=== PATIENT | female | born 1985 | race Caucasian/White ===

== ENCOUNTER → 2017-05-13 | Outpatient (CLI) | payer BC ==
--- NOTE | 2017-05-13 15:23 | RADIOLOGY REPORT (SQ) ---
EXAM DESCRIPTION: KNEE RIGHT 3 VIEWS; EMPLOYEE COMPLETED DATE/TIME: 05/13/2017 3:14 pm REASON FOR STUDY: PAIN IN RIGHT KNEE E07.9 DISORDER OF THYROID, UNSPECIFIED M25.561 PAIN IN RIGHT KNEE M79.674 PAIN IN RIGHT TOE(S) COMPARISON: None. NUMBER OF VIEWS: Three views. TECHNIQUE: AP, lateral, and sunrise patella radiographic images acquired of the right knee. LIMITATIONS: None. FINDINGS: MINERALIZATION: Normal. BONES: No acute fracture or dislocation. No worrisome bone lesions. No significant osteophytes. JOINT: No effusion. No chondrocalcinosis. OTHER: No other significant finding. IMPRESSION: NEGATIVE STUDY OF THE RIGHT KNEE. NO EXPLANATION FOR PAIN. TECHNICAL DOCUMENTATION: JOB ID: [id number] [employer]- All Rights Reserved
--- NOTE | 2017-05-13 15:23 | RADIOLOGY REPORT (SQ) ---
EXAM DESCRIPTION: KNEE RIGHT 3 VIEWS; EMPLOYEE COMPLETED DATE/TIME: 05/13/2017 3:14 pm REASON FOR STUDY: PAIN IN RIGHT KNEE E07.9 DISORDER OF THYROID, UNSPECIFIED M25.561 PAIN IN RIGHT KNEE M79.674 PAIN IN RIGHT TOE(S) COMPARISON: None. NUMBER OF VIEWS: Three views. TECHNIQUE: AP, lateral, and sunrise patella radiographic images acquired of the right knee. LIMITATIONS: None. FINDINGS: MINERALIZATION: Normal. BONES: No acute fracture or dislocation. No worrisome bone lesions. No significant osteophytes. JOINT: No effusion. No chondrocalcinosis. OTHER: No other significant finding. IMPRESSION: NEGATIVE STUDY OF THE RIGHT KNEE. NO EXPLANATION FOR PAIN. TECHNICAL DOCUMENTATION: JOB ID: [id number] [facility]- All Rights Reserved
--- NOTE | 2017-05-13 15:24 | RADIOLOGY REPORT (SQ) ---
EXAM DESCRIPTION: FOOT RIGHT 2 VIEWS; EMPLOYEE COMPLETED DATE/TIME: 05/13/2017 3:14 pm REASON FOR STUDY: PAIN IN RIGHT FOOT; PAIN IN RIGHT TOE(S) E07.9 DISORDER OF THYROID, UNSPECIFIED M 25.561 PAIN IN RIGHT KNEE M79.674 PAIN IN RIGHT TOE(S) COMPARISON: None. NUMBER OF VIEWS: Three views. TECHNIQUE: AP, lateral and oblique without weight bearing radiographic images acquired of the right foot. LIMITATIONS: None. FINDINGS: MINERALIZATION: Normal. BONES: No acute fracture or dislocation. No worrisome bone lesions. No significant osteophytes. JOINTS: No erosions. No eta-articular osteopenia. No chondrocalcinosis. SOFT TISSUES: No swelling. No calcifications. OTHER: No other significant finding. IMPRESSION: NEGATIVE STUDY OF THE RIGHT FOOT. NO EXPLANATION FOR PAIN. TECHNICAL DOCUMENTATION: JOB ID: [id number] [employer]- All Rights Reserved
--- NOTE | 2017-05-13 15:24 | RADIOLOGY REPORT (SQ) ---
EXAM DESCRIPTION: FOOT RIGHT 2 VIEWS; EMPLOYEE COMPLETED DATE/TIME: 05/13/2017 3:14 pm REASON FOR STUDY: PAIN IN RIGHT FOOT; PAIN IN RIGHT TOE(S) E07.9 DISORDER OF THYROID, UNSPECIFIED M 25.561 PAIN IN RIGHT KNEE M79.674 PAIN IN RIGHT TOE(S) COMPARISON: None. NUMBER OF VIEWS: Three views. TECHNIQUE: AP, lateral and oblique without weight bearing radiographic images acquired of the right foot. LIMITATIONS: None. FINDINGS: MINERALIZATION: Normal. BONES: No acute fracture or dislocation. No worrisome bone lesions. No significant osteophytes. JOINTS: No erosions. No tea-articular osteopenia. No chondrocalcinosis. SOFT TISSUES: No swelling. No calcifications. OTHER: No other significant finding. IMPRESSION: NEGATIVE STUDY OF THE RIGHT FOOT. NO EXPLANATION FOR PAIN. TECHNICAL DOCUMENTATION: JOB ID: [id number] [employer]- All Rights Reserved
== END ==
LOC: OD 14:34
PROVIDERS: ATTEND Family Medicine
DX: E07.9 Disorder of thyroid, unspecified (principal); M25.561 Pain in right knee; M79.674 Pain in right toe(s)
CPT/HCPCS: 36415; 84443

== ENCOUNTER → 2017-07-25 | Outpatient (CLI) | payer BC ==
--- NOTE | 2017-07-26 14:26 | RADIOLOGY REPORT (SQ) ---
EXAM DESCRIPTION: MRI RT LOWER JOINT WITHOUT COMPLETED DATE/TIME: 07/25/2017 5:46 pm REASON FOR STUDY: PAIN IN RIGHT KNEE M25.561 PAIN IN RIGHT KNEE COMPARISON: None. TECHNIQUE: Rightknee images acquired and stored on PACS. Multiplanar images include fat sensitive s equences as T1, water sensitive sequences as FST2 or STIR, cartilage sensitive sequences as FSPD, and gradient echo sequences. LIMITATIONS: Patient motion. FINDINGS: JOINT AND BURSAE: No effusion. BONE CORTEX AND MARROW: No alteration of signal to suggest marrow replacement. No worrisome bone lesi ons. No occult fracture. ACL: Intact. No degeneration or ganglion cyst. PCL: Intact. MCL: Intact. No periligamentous edema or fluid. LCL: Intact. No periligamentous edema or fluid. MEDIAL MENISCUS: There is increase signal in the posterior horn which extends to the articular surfac e in the horizontal plane near the root. LATERAL MENISCUS: No tears. No abnormal signal. MEDIAL COMPARTMENT: Cartilage preserved. No bone bruises or reactive marrow edema. No osteophytes. LATERAL COMPARTMENT: Cartilage preserved. No bone bruises or reactive marrow edema. No osteophytes. PATELLA: Lateral tilt. No chondromalacia. No subchondral cysts. Medial and lateral retinacula intact . EXTENSOR MECHANISM: Intact. Quadriceps and patella tendons normal. SOFT TISSUES: Adjacent muscles and subcutaneous tissues normal. Normal flow void in popliteal artery and vein. OTHER: No other significant finding. IMPRESSION: Horizontal tear medial meniscus near the posterior root. TECHNICAL DOCUMENTATION: JOB ID: [id number] [employer]- All Rights Reserved Reading location - IP/workstation name: [email or web address]
== END ==
LOC: RAD 16:44
PROVIDERS: ATTEND Orthopaedic Surgery
DX: M25.561 Pain in right knee (principal); S83.241A Other tear of medial meniscus, current injury, right knee, initial encounter; X58.XXXA Exposure to other specified factors, initial encounter

== ENCOUNTER → 2017-08-20 | Outpatient (CLI) | payer BC ==
[2017-08-20 10:46] LABS: ABSOLUTE BASOPHILS # (AUTO) 0.1 10^3/uL (0.0-0.2); ABSOLUTE EOSINOPHILS # (AUTO) 0.1 10^3/uL (0.0-0.6); ABSOLUTE LYMPHOCYTES (AUTO) 1.9 10^3/uL (0.5-4.7); ABSOLUTE MONOCYTES (AUTO) 0.3 10^3/uL (0.1-1.4); ABSOLUTE NEUT (AUTO) 3.1 10^3/uL (1.7-8.2); EOSINOPHILS % (AUTO) 2.2 % (0-6); HEMATOCRIT 41.1 % (36.0-47.0); HEMOGLOBIN 13.8 g/dL (12.0-15.5); LYMPHOCYTES % (AUTO) 34.2 % (13-45); MEAN CORPUSCULAR HEMOGLOBIN 30.4 pg (27.0-33.4); MEAN CORPUSCULAR HGB CONC 33.5 g/dL (32.0-36.0); MEAN CORPUSCULAR VOLUME 91 fl (80-97); MONOCYTES % (AUTO) 6.1 % (3-13); PLATELET COUNT 196 10^3/uL (150-450); RED BLOOD COUNT 4.54 10^6/uL (3.72-5.28); RED CELL DISTRIBUTION WIDTH 14.1 % (11.5-14.0); SEGMENTED NEUTROPHILS % (AUTO) 56.5 % (42-78); TOTAL CELLS COUNTED % (AUTO) 100 %; WHITE BLOOD COUNT 5.5 10^3/uL (4.0-10.5)
[2017-08-20 11:16] LABS: ALANINE AMINOTRANSFERASE 48 U/L (9-52); ALBUMIN 4.2 g/dL (3.5-5.0); ALKALINE PHOSPHATASE 74 U/L (38-126); ANION GAP 11 (5-19); ASPARTATE AMINO TRANSFERASE 26 U/L (14-36); BILIRUBIN,DIRECT 0.1 mg/dL (0.0-0.4); BILIRUBIN,TOTAL 0.1 mg/dL (0.2-1.3); BLOOD UREA NITROGEN 16 mg/dL (7-20); CALCIUM 9.3 mg/dL (8.4-10.2); CARBON DIOXIDE 30 mmol/L (22-30); CHLORIDE 104 mmol/L (98-107); GLUCOSE 96 mg/dL (75-110); POTASSIUM 4.7 mmol/L (3.6-5.0); SODIUM 145.2 mmol/L (137-145); TOTAL PROTEIN 7.2 g/dL (6.3-8.2)
[2017-08-24 03:36] LABS: CHLAMYDIA PREQUOT NAA Negative (Negative)
[2017-08-24 06:21] LABS: GONOCOCCUS PREQUOT (CYTO) NAA Negative (Negative)
== END ==
LOC: OD 10:01
PROVIDERS: ATTEND Midwife
DX: Z00.00 Encounter for general adult medical examination without abnormal findings (principal); Z13.6 Encounter for screening for cardiovascular disorders; Z13.29 Encounter for screening for other suspected endocrine disorder; Z13.220 Encounter for screening for lipoid disorders; Z13.0 Encounter for screening for diseases of the blood and blood-forming organs and certain disorders involving the immune mechanism; Z11.51 Encounter for screening for human papillomavirus (HPV); Z11.3 Encounter for screening for infections with a predominantly sexual mode of transmission; Z12.4 Encounter for screening for malignant neoplasm of cervix
CPT/HCPCS: 36415; 80053; 84443; 85025; 87491; 87591; 87624; 88142

== ENCOUNTER 2017-08-26 00:16 | Emergency (ER) | payer BC ==
[2017-08-26] MEDS ORDERED: MAG HYDROX/AL HYDROX/SIMETH SUSP 30 ML UDCUP PO ONE (01:17)
[2017-08-26] MEDS ORDERED: LIDOCAINE 2% VISCOUS SOLN 20 ML UDCUP PO ONE (01:17)
--- NOTE | 2017-08-26 01:22 | ER Document Report ---
ED Medical Screen (RME) - General Chief Complaint: Abdominal Pain Stated Complaint: ABDOMINAL PAIN Time Seen by Provider: 08/26/17 01:17 Mode of Arrival: Ambulatory Information source: Patient Notes: Patient presents complaining of upper abdominal pain that started yesterday evening. Patient complains of frequent belching and feeling bloated. Patient denies any nausea or vomiting. Patient denies any cough or cold symptoms. Patient denies any chest pain or urinary symptoms. I have greeted and performed a rapid initial assessment of this patient. A comprehensive ED assessment and evaluation of the patient, analysis of test results and completion of the medical decision making process will be conducted by additional ED providers. TRAVEL OUTSIDE OF THE [place] IN LAST 30 DAYS: No - Related Data Allergies/Adverse Reactions: No Known Allergies Allergy (Unverified 09/29/13 01:12) Past Medical History - Social History Frequency of alcohol use: None Drug Abuse: None Renal/ Medical History: Denies: Hx Peritoneal Dialysis Musculoskeltal Medical History: Reports Hx Musculoskeletal Trauma Past Surgical History: Reports: Hx Orthopedic Surgery - L knee Physical Exam - Vital signs Vitals: Temp Pulse Resp BP Pulse Ox 97.9 F 75 18 135/86 H 98 08/26/17 00:21 08/26/17 00:21 08/26/17 00:21 08/26/17 00:21 08/26/17 00:21 - Abdominal Tenderness: Tender - Upper abdominal tenderness Course - Vital Signs Vital signs: Temp Pulse Resp BP Pulse Ox 97.9 F 75 18 135/86 H 98 08/26/17 00:21 08/26/17 00:21 08/26/17 00:21 08/26/17 00:21 08/26/17 00:21
[2017-08-26 02:03] LABS: ABSOLUTE LYMPHOCYTES (AUTO) 1.8 10^3/uL (0.5-4.7); ABSOLUTE MONOCYTES (AUTO) 0.6 10^3/uL (0.1-1.4); ABSOLUTE NEUT (AUTO) 7.4 10^3/uL (1.7-8.2); BASOPHILS % (AUTO) 0.4 % (0-2); EOSINOPHILS % (AUTO) 0.4 % (0-6); HEMATOCRIT 43.2 % (36.0-47.0); HEMOGLOBIN 14.2 g/dL (12.0-15.5); LYMPHOCYTES % (AUTO) 18.1 % (13-45); MEAN CORPUSCULAR HEMOGLOBIN 30.1 pg (27.0-33.4); MEAN CORPUSCULAR VOLUME 91 fl (80-97); MONOCYTES % (AUTO) 5.9 % (3-13); PLATELET COUNT 258 10^3/uL (150-450); RED BLOOD COUNT 4.74 10^6/uL (3.72-5.28); RED CELL DISTRIBUTION WIDTH 14.8 % (11.5-14.0); SEGMENTED NEUTROPHILS % (AUTO) 75.2 % (42-78); TOTAL CELLS COUNTED % (AUTO) 100 %; WHITE BLOOD COUNT 9.8 10^3/uL (4.0-10.5)
[2017-08-26 02:29] LABS: ALANINE AMINOTRANSFERASE 51 U/L (9-52); ALBUMIN 4.6 g/dL (3.5-5.0); ALKALINE PHOSPHATASE 78 U/L (38-126); ANION GAP 15 (5-19); ASPARTATE AMINO TRANSFERASE 25 U/L (14-36); BILIRUBIN,DIRECT 0.3 mg/dL (0.0-0.4); BILIRUBIN,TOTAL 0.3 mg/dL (0.2-1.3); BLOOD UREA NITROGEN 11 mg/dL (7-20); CALCIUM 9.6 mg/dL (8.4-10.2); CARBON DIOXIDE 24 mmol/L (22-30); CHLORIDE 106 mmol/L (98-107); GLUCOSE 122 mg/dL (75-110); LIPASE 45.3 U/L (23-300); POTASSIUM 4.2 mmol/L (3.6-5.0); SODIUM 144.7 mmol/L (137-145); TOTAL PROTEIN 7.9 g/dL (6.3-8.2)
[2017-08-26 02:38] LABS: APPEARANCE,URINE SLIGHTLY-CLOUDY; BILIRUBIN,URINE NEGATIVE (NEGATIVE); COLOR,URINE YELLOW; GLUCOSE, URINE NEGATIVE (NEGATIVE); KETONES,URINE TRACE mg/dL (NEGATIVE); LEUKOCYTE ESTERASE,URINE NEGATIVE (NEGATIVE); NITRITE,URINE NEGATIVE (NEGATIVE); PROTEIN,URINE NEGATIVE (NEGATIVE); URINE SPECIFIC GRAVITY 1.029; UROBILINOGEN,URINE NEGATIVE mg/dL (<2.0)
[2017-08-26] MEDS ORDERED: FAMOTIDINE 20 MG TABLET PO ONE (03:37)
--- NOTE | 2017-08-26 03:38 | ER Document Report ---
ED General - General Chief Complaint: Abdominal Pain Stated Complaint: ABDOMINAL PAIN Time Seen by Provider: 08/26/17 01:17 Mode of Arrival: Ambulatory Information source: Patient Notes: 32-year-old female presents with complaints of epigastric burning sensation. Patient denies any fevers or chills admits to mild nausea. She denies any vomiting. Patient states that this does not appear to be related to food. Pain does not radiate to size but radiates to the back from the middle TRAVEL OUTSIDE OF THE [place] IN LAST 30 DAYS: No - HPI Onset: Just prior to arrival Onset/Duration: Sudden Quality of pain: Sharp Severity: Mild Pain Level: 1 Associated symptoms: Other Exacerbated by: Denies Relieved by: Denies Similar symptoms previously: No Recently seen / treated by doctor: No - Related Data Allergies/Adverse Reactions: No Known Allergies Allergy (Unverified 09/29/13 01:12) Past Medical History - General Information source: Patient - Social History Smoking Status: Never Smoker Cigarette use (# per day): No Chew tobacco use (# tins/day): No Smoking Education Provided: No Frequency of alcohol use: None Drug Abuse: None Family History: Reviewed & Not Pertinent Patient has suicidal ideation: No Patient has homicidal ideation: No Renal/ Medical History: Denies: Hx Peritoneal Dialysis Musculoskeltal Medical History: Reports Hx Musculoskeletal Trauma Past Surgical History: Reports: Hx Orthopedic Surgery - L knee Review of Systems - Review of Systems Notes: REVIEW OF SYSTEMS: CONSTITUTIONAL : Denies fever, chills, or sweats. Denies recent illness. EENT: Denies eye, ear, throat, or mouth pain or symptoms. Denies nasal or sinus congestion or discharge. Denies throat, tongue, or mouth swelling or difficulty swallowing. CARDIOVASCULAR: Denies chest pain. Denies palpitations or racing or irregular heart beat. Denies ankle edema. RESPIRATORY: Denies cough, cold, or chest congestion. Denies shortness of breath, difficulty breathing, or wheezing. GASTROINTESTINAL: Admits to epigastric abdominal pain GENITOURINARY: Denies difficulty urinating, painful urination, burning, frequency, blood in urine, or discharge. MUSCULOSKELETAL: Denies back or neck pain or stiffness. Denies joint pain or swelling. SKIN: Denies rash, lesions or sores. HEMATOLOGIC : Denies easy bruising or bleeding. LYMPHATIC: Denies swollen, enlarged glands. NEUROLOGICAL: Denies confusion or altered mental status. Denies passing out or loss of consciousness. Denies dizziness or lightheadedness. Denies headache. Denies weakness or paralysis or loss of use of either side. Denies problems with gait or speech. Denies sensory loss, numbness, or tingling. Denies seizures. PSYCHIATRIC: Denies anxiety or stress. Denies depression, suicidal ideation, or homicidal ideation. ALL OTHER SYSTEMS REVIEWED AND NEGATIVE. Dictation was performed using [employer] voice recognition software PHYSICAL EXAMINATION: GENERAL: Well-appearing, well-nourished and in no acute distress. HEAD: Atraumatic, normocephalic. EYES: Pupils equal round and reactive to light, extraocular movements intact, sclera anicteric, conjunctiva are normal. ENT: Nares patent, oropharynx clear without exudates. Moist mucous membranes. NECK: Normal range of motion, supple without lymphadenopathy LUNGS: Breath sounds clear to auscultation bilaterally and equal. No wheezes rales or rhonchi. HEART: Regular rate and rhythm without murmurs ABDOMEN: Soft, tender in epigastric region no rebound or guarding Musculoskeletal: Normal range of motion, no pitting or edema. No cyanosis. NEUROLOGICAL: Cranial nerves grossly intact. Normal speech, normal gait. Normal sensory, motor exams PSYCH: Normal mood, normal affect. SKIN: Warm, Dry, normal turgor, no rashes or lesions noted. Physical Exam - Vital signs Vitals: Temp Pulse Resp BP Pulse Ox 97.9 F 75 18 135/86 H 98 08/26/17 00:21 08/26/17 00:21 08/26/17 00:21 08/26/17 00:21 08/26/17 00:21 Course - Re-evaluation Re-evalutation: 08/26/17 05:36 Ultrasound was consistent with small stones but her pain is not in the right upper quadrant is consistent epigastric region, it was attempted to give her GI cocktail but she vomited that up, this is only time she has actually vomited. She has been nauseous, patient overall looks well is in no distress lab work noted no elevation of white count, she does not appear to be in any distress at this time, I did start her on Pepcid and I do believe it is gastric reflux related. I gave her follow-up with GI specialist, we had a long discussion regarding her care, I did provide very strict return precautions After performing a Medical Screening Examination, I estimate there is LOW risk for ACUTE APPENDICITIS, BOWEL OBSTRUCTION, ACUTE CHOLECYSTITIS, PERFORATED DIVERTICULITIS, INCARCERATED HERNIA, PANCREATITIS, PELVIC INFLAMMATORY DISEASE, PERFORATED ULCER, ECTOPIC , or TUBO-OVARIAN ABSCESS, thus I consider the discharge disposition reasonable. Also, there is no evidence or peritonitis , sepsis, or toxicity. I have reevaluated this patient multiple times and no significant life threatening changes are noted. The patient and I have discussed the diagnosis and risks, and we agree with discharging home with close follow-up with the understanding that symptoms and presentations can change. We also discussed returning to the Emergency Department immediately if new or worsening symptoms occur. We have discussed the symptoms which are most concerning (e.g., bloody stool, fever, changing or worsening pain, vomiting) that necessitate immediate return. - Vital Signs Vital signs: Temp Pulse Resp BP Pulse Ox 97.9 F 50 L 16 128/83 H 100 08/26/17 00:21 08/26/17 03:56 08/26/17 03:56 08/26/17 03:56 08/26/17 03:56 - Laboratory Result Diagrams: 08/26/17 01:50 08/26/17 01:50 Laboratory results interpreted by me: 08/26/17 08/26/17 08/26/17 01:50 01:50 01:50 RDW 14.8 H Glucose 122 H Urine Ketones TRACE H Urine Blood LARGE H - Diagnostic Test Radiology reviewed: Image reviewed - Ultrasound right upper quadrant limited abdomen consistent with small floating stones, Reports reviewed Discharge - Discharge Clinical Impression: Epigastric abdominal pain GERD (gastroesophageal reflux disease) Qualifiers: Esophagitis presence: with esophagitis Qualified Code(s): K21.0 - Gastro- esophageal reflux disease with esophagitis Condition: Stable Disposition: HOME, SELF-CARE Instructions: Abdominal Pain ([facility]) Prescriptions: Famotidine [Pepcid 40 mg Tablet] 40 mg PO DAILY #30 tablet Metoclopramide HCl [Reglan 10 mg Tablet] 1 - 2 tab PO Q6 #25 tablet Forms: Return to Work Referrals: BREN VEE MD [Primary Care Provider] - Follow up as needed EDIS GOODSON MD [ACTIVE STAFF] - Follow up tomorrow
[2017-08-26 03:56] VITALS: BP 128/83
--- NOTE | 2017-08-26 04:28 | RADIOLOGY REPORT (SQ) ---
EXAM DESCRIPTION: U/S ABDOMEN LIMITED W/O DOP COMPLETED DATE/TIME: 08/26/2017 3:13 am REASON FOR STUDY: upper abd pain COMPARISON: None. TECHNIQUE: Dynamic and static grayscale images acquired of the abdomen and recorded on PACS. Additio nal selected color Doppler and spectral images recorded. LIMITATIONS: None. FINDINGS: PANCREAS: No masses. Visualized pancreatic duct normal caliber. LIVER: Fatty infiltration. No focal masses. LIVER VASCULATURE: Normal directional flow of the main portal vein and hepatic veins. GALLBLADDER: Echogenic foci without shadowing. Probably small stones. Possibly polyp. ULTRASOUND-DETECTED DISLA'S SIGN: Negative. INTRAHEPATIC DUCTS AND COMMON DUCT: CBD and intrahepatic ducts normal caliber. No filling defects. INFERIOR VENA CAVA: Normal flow. AORTA: No aneurysm. RIGHT KIDNEY: Normal size. Normal echogenicity. No solid or suspicious masses. No hydronephrosis. No calcifications. PERITONEAL AND RIGHT PLEURAL SPACE: No ascites or effusions. OTHER: No other significant findings. IMPRESSION: Likely small floating stones in the gallbladder. Possible polyp is well. Fatty liver. TECHNICAL DOCUMENTATION: JOB ID: [id number] [employer]- All Rights Reserved Reading location - IP/workstation name: [email or web address]
== END 2017-08-26 03:57 | disposition home or self-care (01) ==
LOC: ER 00:16
DX: R10.13 Epigastric pain (principal); K21.0 Gastro-esophageal reflux disease with esophagitis; R11.0 Nausea
CPT/HCPCS: 99284; 36415; 83690; 84703; 85025; 80053; 81001; 76705; J3490

== ENCOUNTER → 2017-09-05 | Outpatient (CLI) | payer BC ==
[2017-09-09 07:47] LABS: HELICOBACTER PYLORI IGA AB <9.0 units (0.0-8.9); HELICOBACTER PYLORI IGG AB <0.80 (0.00-0.79); HELICOBACTER PYLORI IGM AB <9.0 units (0.0-8.9)
== END ==
LOC: OD 15:55
PROVIDERS: ATTEND Surgery
DX: K29.70 Gastritis, unspecified, without bleeding (principal); R10.9 Unspecified abdominal pain
CPT/HCPCS: 36415; 86677

== ENCOUNTER 2017-09-10 05:34 | Day surgery (SDC) | payer BC ==
--- NOTE | 2017-09-03 08:46 | EKG REPORT ---
SEVERITY:- OTHERWISE NORMAL ECG - SINUS ARRHYTHMIA, RATE 47-70 : Confirmed by: Rosa M Carmona 03-Sep-2017 08:45:53
[2017-09-03 09:16] LABS: ABSOLUTE BASOPHILS # (AUTO) 0.1 10^3/uL (0.0-0.2); ABSOLUTE EOSINOPHILS # (AUTO) 0.1 10^3/uL (0.0-0.6); ABSOLUTE MONOCYTES (AUTO) 0.5 10^3/uL (0.1-1.4); ABSOLUTE NEUT (AUTO) 4.1 10^3/uL (1.7-8.2); BASOPHILS % (AUTO) 1.2 % (0-2); EOSINOPHILS % (AUTO) 2.1 % (0-6); HEMATOCRIT 41.8 % (36.0-47.0); HEMOGLOBIN 13.9 g/dL (12.0-15.5); LYMPHOCYTES % (AUTO) 29.2 % (13-45); MEAN CORPUSCULAR HGB CONC 33.2 g/dL (32.0-36.0); MEAN CORPUSCULAR VOLUME 90 fl (80-97); MONOCYTES % (AUTO) 7.6 % (3-13); PLATELET COUNT 263 10^3/uL (150-450); RED BLOOD COUNT 4.62 10^6/uL (3.72-5.28); RED CELL DISTRIBUTION WIDTH 14.5 % (11.5-14.0); SEGMENTED NEUTROPHILS % (AUTO) 59.9 % (42-78); TOTAL CELLS COUNTED % (AUTO) 100 %; WHITE BLOOD COUNT 6.9 10^3/uL (4.0-10.5)
[2017-09-03 09:37] LABS: APPEARANCE,URINE CLEAR; BILIRUBIN,URINE NEGATIVE (NEGATIVE); COLOR,URINE YELLOW; GLUCOSE, URINE NEGATIVE (NEGATIVE); KETONES,URINE NEGATIVE (NEGATIVE); LEUKOCYTE ESTERASE,URINE NEGATIVE (NEGATIVE); NITRITE,URINE NEGATIVE (NEGATIVE); PROTEIN,URINE NEGATIVE (NEGATIVE); URINE SPECIFIC GRAVITY 1.027; UROBILINOGEN,URINE NEGATIVE mg/dL (<2.0)
--- NOTE | 2017-09-03 09:43 | RADIOLOGY REPORT (SQ) ---
EXAM DESCRIPTION: CHEST PA/LATERAL COMPLETED DATE/TIME: 09/03/2017 8:49 am REASON FOR STUDY: PRE-OP COMPARISON: None. EXAM PARAMETERS: NUMBER OF VIEWS: two views TECHNIQUE: Digital Frontal and Lateral radiographic views of the chest acquired. RADIATION DOSE: NA LIMITATIONS: none FINDINGS: LUNGS AND PLEURA: No acute infiltrates or effusions. MEDIASTINUM AND HILAR STRUCTURES: No masses or contour abnormalities. HEART AND VASCULAR STRUCTURES: The heart is normal with normal pulmonary vasculature. . BONES: No acute findings. HARDWARE: None in the chest. OTHER: No other significant finding. IMPRESSION: NO ACUTE DISEASE. TECHNICAL DOCUMENTATION: JOB ID: [id number] [employer] [facility]- All Rights Reserved Reading location - IP/workstation name: [email or web address]
[2017-09-03 09:46] LABS: ANION GAP 14 (5-19); BLOOD UREA NITROGEN 12 mg/dL (7-20); CALCIUM 9.5 mg/dL (8.4-10.2); CARBON DIOXIDE 28 mmol/L (22-30); CHLORIDE 102 mmol/L (98-107); GLUCOSE 96 mg/dL (75-110); POTASSIUM 4.5 mmol/L (3.6-5.0); SODIUM 143.8 mmol/L (137-145)
[~2017-09-10 05:34] MED LIST: CEFAZOLIN SODIUM 2 GM in DEXTROSE 5%-WATER 100 ML IV PRN; LACTATED RINGERS 1000 ML IV PRN; LIDOCAINE 0.5% INJ-PF (5 MG/ML) 50 ML SDV SUBCUT PRN
[2017-09-10] MEDS ORDERED: FENTANYL CITRATE INJ/PF 100 MCG/2 ML AMPUL ONE (06:42)
[2017-09-10] MEDS ORDERED: MIDAZOLAM 2 MG/2 ML INJ ONE (06:42)
[2017-09-10] MEDS ORDERED: PROPOFOL INJ 200 MG/20 ML VIAL IV ONE ×2 (06:42→07:01)
[2017-09-10] MEDS ORDERED: MORPHINE SULFATE 10 MG/ML INJ ONE (06:43)
[2017-09-10] MEDS ORDERED: BUPIVACAINE HCL 0.5 % INJ/PF 30 ML SDV ONE (06:45)
[2017-09-10] MEDS ORDERED: LIDOCAINE 1%/EPINEPHRINE INJ 20 ML VIAL ONE (06:45)
[2017-09-10] MEDS ORDERED: FENTANYL CITRATE INJ/PF 100 MCG/2 ML AMPUL IV PRN ×3 (07:35)
[2017-09-10] MEDS ORDERED: DIPHENHYDRAMINE HCL 50 MG/ML VIAL IV PRN (07:35)
[2017-09-10] MEDS ORDERED: MORPHINE SULFATE 10 MG/ML INJ IV PRN (07:35)
[2017-09-10] MEDS ORDERED: PROMETHAZINE HCL INJ 25 MG/1 ML VIAL IV PRN (07:35)
[2017-09-10] MEDS ORDERED: MEPERIDINE HCL/PF INJ 25 MG/1 ML DISP.SYRIN IV PRN (07:35)
--- NOTE | 2017-09-10 07:48 | Operative Report ---
Operative Report DATE OF SURGERY: 09/10/17 PREOPERATIVE DIAGNOSIS: Right medial meniscal tear POSTOPERATIVE DIAGNOSIS: Right medial meniscal tear. Grade 0-I chondromalacia the medial compartment. Intact ACL. Grade 0-1 chondral malacia lateral compartment. Lateral meniscal tear. Grade 0-1 chondral malacia the patellofemoral compartment OPERATION: Arthroscopic right partial medial and lateral meniscectomy SURGEON: CHRISTINE GARCES ANESTHESIA: LMAC PROCEDURE: With the patient supine Afrin table the right lower extremities prepped and draped in sterile fashion. The knee is insufflated with combination of Marcaine , Xylocaine, and epinephrine. Subsequently medial lateral patella portals are created for the introduction of arthroscope and debridement instrumentation. Joint is examined in systematic fashion findings as above. Using combination of mechanical shaver and electric frequency ablation probe a partial medial meniscectomy was performed from approximately 4:00 to 12:00 in the face of the dial. Partial lateral meniscectomy was performed from proximal 8:00 to 12:00 in the face of the dial. The joint again is examined in systematic fashion with no new findings. The instrumentation was removed. The portals were reapproximated with interrupted nylon. A sterile compressive dressing was applied and patient's return to the PACU in satisfactory condition.
[2017-09-10] MEDS ORDERED: ONDANSETRON 4 MG TAB.RAPDIS SL PRN (08:08)
[2017-09-10] MEDS ORDERED: OXYCODONE HCL IR 5 MG TABLET PO PRN (08:08)
[2017-09-10 09:57] VITALS: BP 109/73
== END 2017-09-10 09:50 | disposition home or self-care (01) ==
LOC: OROUT 05:34
PROVIDERS: ATTEND Orthopaedic Surgery
DX: M23.204 Derangement of unspecified medial meniscus due to old tear or injury, left knee (principal); M22.41 Chondromalacia patellae, right knee; M23.200 Derangement of unspecified lateral meniscus due to old tear or injury, right knee; Z01.818 Encounter for other preprocedural examination
CPT/HCPCS: 93005; 36415; 85025; 81025; 80048; 81001; 71046; 93010; 29880; J2250; J3490 ×2; J0690; J3010; J2704; 1400; J2270

== ENCOUNTER 2017-09-15 21:59 | Observation (INO) | payer BC ==
[2017-09-15] MEDS ORDERED: ONDANSETRON 4 MG TAB.RAPDIS PO ONE (23:12)
[2017-09-15] MEDS ORDERED: HYDROMORPHONE HCL INJ/PF 2 MG/ML AMPULE IV ONE (23:14)
[2017-09-15] MEDS ORDERED: ONDANSETRON HCL INJ/PF 4 MG/2 ML SDV IV ONE (23:14)
[2017-09-15] MEDS ORDERED: KETOROLAC TROMETHAMINE INJ/PF 30 MG/1 ML SDV IV ONE (23:14)
--- NOTE | 2017-09-15 23:34 | ER Document Report ---
ED GI/ - General Chief Complaint: Abdominal Pain Stated Complaint: ABDOMINAL BACK PAIN Time Seen by Provider: 09/15/17 23:12 Notes: The patient is a 32-year-old female, past medical history cholelithiasis, presents with worsening right upper quadrant abdominal pain, nausea and vomiting that started after she ate dinner tonight. She was seen in the ER 2 weeks ago and told she had cholelithiasis, but no evidence of cholecystitis at that time. Patient denies fevers, hematemesis, diarrhea, constipation, urinary symptoms, flank pain or syncope. TRAVEL OUTSIDE OF THE [place] IN LAST 30 DAYS: No - Related Data Allergies/Adverse Reactions: No Known Allergies Allergy (Verified 08/28/17 13:49) Past Medical History - General Information source: Patient - Social History Smoking Status: Unknown if Ever Smoked Family History: Reviewed & Not Pertinent - Past Medical History Cardiac Medical History: Denies: Hx Coronary Artery Disease, Hx Heart Attack Pulmonary Medical History: Denies: Hx Asthma, Hx Bronchitis, Hx COPD, Hx Pneumonia Neurological Medical History: Denies: Hx Cerebrovascular Accident, Hx Seizures Renal/ Medical History: Denies: Hx Peritoneal Dialysis Musculoskeltal Medical History: Denies Hx Arthritis, Reports Hx Musculoskeletal Trauma Past Surgical History: Reports: Hx Orthopedic Surgery - L knee - Immunizations Hx Diphtheria, Pertussis, Tetanus Vaccination: Yes Review of Systems - Review of Systems Notes: REVIEW OF SYSTEMS: CONSTITUTIONAL: -fevers, -chills EENT: -eye pain, -difficulty swallowing, -nasal congestion CARDIOVASCULAR: -chest pain, -syncope. RESPIRATORY: -cough, -SOB GASTROINTESTINAL: +RUQ abdominal pain, +nausea, +vomiting, -diarrhea GENITOURINARY: -dysuria, -hematuria MUSCULOSKELETAL: -back pain, -neck pain SKIN: -rash or skin lesions. HEMATOLOGIC: -easy bruising or bleeding. LYMPHATIC: -swollen, enlarged glands. NEUROLOGICAL: -altered mental status or loss of consciousness, -headache, - neurologic symptoms PSYCHIATRIC: -anxiety, -depression. ALL OTHER SYSTEMS REVIEWED AND NEGATIVE. Physical Exam - Vital signs Vitals: Temp Pulse BP Pulse Ox 98.9 F 86 117/80 93 09/15/17 22:37 09/15/17 22:37 09/15/17 22:37 09/15/17 22:37 - Notes Notes: PHYSICAL EXAMINATION: GENERAL: Well-appearing, well-nourished and in no acute distress. HEAD: Atraumatic, normocephalic. EYES: Pupils equal round and reactive to light, extraocular movements intact, sclera anicteric, conjunctiva are normal. ENT: nares patent, oropharynx clear without exudates. Moist mucous membranes. NECK: Normal range of motion, supple without lymphadenopathy LUNGS: Breath sounds clear to auscultation bilaterally and equal. No wheezes rales or rhonchi. HEART: Regular rate and rhythm without murmurs ABDOMEN: Soft, mild RUQ and epigastric tenderness, normoactive bowel sounds. No guarding, no rebound. No masses appreciated. EXTREMITIES: Normal range of motion, no pitting or edema. No cyanosis. NEUROLOGICAL: Cranial nerves grossly intact. Normal speech, normal gait. Normal sensory and motor exams. PSYCH: Normal mood, normal affect. SKIN: Warm, Dry, normal turgor, no rashes or lesions noted. Course - Re-evaluation Re-evalutation: Patient with right upper quadrant abdominal pain tenderness. After Zofran, 0.5 mg Dilaudid and Toradol, her pain decreased down to 1 out of 5. Ultrasound does not show evidence of cholecystitis, but she does have cholelithiasis and sludge. LFTs and lipase are normal. Patient is still having mild pain that is worse after eating. Because the patient does not have acute cholecystitis, offered patient outpatient management with her surgeon, Dr. Escobar, for admission due to symptomatic cholelithiasis and worsening of symptoms. She would like to be 09/16/17 03:07 Dr. Willard is tied up in a critical case at this time. Will keep the patient n.p.o., continue pain and nausea medications as needed and provide IV fluids until a surgical consultation can be made. 09/16/17 03:[address] Willard and will admit patient to medical floor. - Vital Signs Vital signs: Temp Pulse Resp BP Pulse Ox 98.9 F 86 117/80 93 09/15/17 22:37 09/15/17 22:37 09/15/17 22:37 09/15/17 22:37 - Laboratory Result Diagrams: 09/16/17 00:39 09/16/17 00:39 Laboratory results interpreted by me: 09/16/17 09/16/17 00:39 00:39 WBC 12.7 H RDW 14.5 H Seg Neutrophils % 88.0 H Lymphocytes % 7.0 L Absolute Neutrophils 11.1 H Glucose 125 H - Diagnostic Test Radiology reviewed: Image reviewed, Reports reviewed Radiology results interpreted by me: ALETHEA US: 1. Cholelithiasis without other sonographic evidence of acute cholecystitis. 2. Nonmobile 0.3 cm echogenic structure along the gallbladder wall. This could represent an adherent stone or sludge ball. This could also represent a tiny cholesterol polyp. No follow-up required. 3. Hepatic steatosis. Discharge - Discharge Clinical Impression: Symptomatic cholelithiasis Nausea & vomiting Qualifiers: Vomiting type: unspecified Vomiting Intractability: non-intractable Qualified Code(s): R11.2 - Nausea with vomiting, unspecified Condition: Stable Disposition: ADMITTED INPATIENT Admitting Provider: Surgicalist - [place] Unit Admitted: Surgical Floor
[2017-09-16 00:46] LABS: ABSOLUTE LYMPHOCYTES (AUTO) 0.9 10^3/uL (0.5-4.7); ABSOLUTE MONOCYTES (AUTO) 0.6 10^3/uL (0.1-1.4); ABSOLUTE NEUT (AUTO) 11.1 10^3/uL (1.7-8.2); BASOPHILS % (AUTO) 0.3 % (0-2); HEMATOCRIT 42.7 % (36.0-47.0); HEMOGLOBIN 14.4 g/dL (12.0-15.5); MEAN CORPUSCULAR HEMOGLOBIN 30.5 pg (27.0-33.4); MEAN CORPUSCULAR HGB CONC 33.6 g/dL (32.0-36.0); MEAN CORPUSCULAR VOLUME 91 fl (80-97); MONOCYTES % (AUTO) 4.7 % (3-13); PLATELET COUNT 253 10^3/uL (150-450); RED BLOOD COUNT 4.71 10^6/uL (3.72-5.28); RED CELL DISTRIBUTION WIDTH 14.5 % (11.5-14.0); TOTAL CELLS COUNTED % (AUTO) 100 %; WHITE BLOOD COUNT 12.7 10^3/uL (4.0-10.5)
[2017-09-16 01:08] LABS: ALANINE AMINOTRANSFERASE 38 U/L (9-52); ALBUMIN 4.8 g/dL (3.5-5.0); ALKALINE PHOSPHATASE 80 U/L (38-126); ANION GAP 14 (5-19); ASPARTATE AMINO TRANSFERASE 28 U/L (14-36); BILIRUBIN,DIRECT 0.3 mg/dL (0.0-0.4); BILIRUBIN,TOTAL 0.4 mg/dL (0.2-1.3); BLOOD UREA NITROGEN 12 mg/dL (7-20); CARBON DIOXIDE 27 mmol/L (22-30); CHLORIDE 103 mmol/L (98-107); GLUCOSE 125 mg/dL (75-110); LIPASE 39.4 U/L (23-300); POTASSIUM 4.1 mmol/L (3.6-5.0); SODIUM 144.1 mmol/L (137-145); TOTAL PROTEIN 8.1 g/dL (6.3-8.2)
--- NOTE | 2017-09-16 02:01 | RADIOLOGY REPORT (SQ) ---
EXAM DESCRIPTION: Right upper abdominal ultrasound. CLINICAL HISTORY: RUQ pain COMPARISON: 08/26/2017 TECHNIQUE: Real-time sonographic images of the right upper abdomen were obtained using a curved multihertz transducer. FINDINGS: Pancreas: The visualized portions of the pancreas are unremarkable. Vascular: The visualized portions of the aorta and IVC are unremarkable. Liver: The liver has normal contour and increased echogenicity. Hepatopedal flow in the portal vein. The common bile duct measures 0.3 cm. Gallbladder: Normal gallbladder wall thickness. No pericholecystic fluid. Mobile echogenic structures within the gallbladder lumen. Negative reported sonographic Isidro sign. Nonmobile focus along the gallbladder wall measuring 0.3 cm. Right Kidney: The right kidney measures 11.5 cm in length. No hydronephrosis, solid renal mass, or shadowing calculi. IMPRESSION: 1. Cholelithiasis without other sonographic evidence of acute cholecystitis. 2. Nonmobile 0.3 cm echogenic structure along the gallbladder wall. This could represent an adherent stone or sludge ball. This could also represent a tiny cholesterol polyp. No follow-up required. 3. Hepatic steatosis.
[2017-09-16] MEDS ORDERED: NORMAL SALINE 1000 ML 1,000 ML IV ONE (03:21)
[2017-09-16] MEDS ORDERED: ONDANSETRON HCL INJ/PF 4 MG/2 ML SDV IV PRN ×2 (03:27→04:00)
[2017-09-16] MEDS ORDERED: RINGERS SOLUTION,LACTATED 1,000 ML IV PRN (04:01)
[2017-09-16] MEDS ORDERED: DEXTROSE 40% GEL 15 GM TUBE PO PRN ×2 (04:01)
[2017-09-16] MEDS ORDERED: GLUCAGON,HUMAN RECOMB 1 MG INJ SUBCUT PRN (04:01)
[2017-09-16] MEDS ORDERED: DEXTROSE 50%-WATER 25 GM/50 ML DISP.SYRIN IV PRN ×2 (04:01)
--- NOTE | 2017-09-16 04:08 | PDOC H&P ---
History of Present Illness Admission Date/PCP: 09/16/17 03:56 MARIKA VEE MD Patient complains of: Abdominal pain History of Present Illness: JAVIER KOCH is a 32 year old female Presents to the emergency department via ground rescue complaining of abdominal pain, postprandial, right upper quadrant radiating to the back. Symptoms are identical to multiple previous episode she has had over the last several months. Patient was seen and also more hospital emergency department on August 26 when she was evaluated by gallbladder ultrasonography and found to have gallstones. She was treated symptomatically. She followed up with Dr. Cervantes, general surgeon at [facility] approximately 2 weeks ago and was managed expectantly. The patient now presents with persisting symptoms. She is received pain medication emergency department and a follow-up ultrasound showed gallstones, possible gallbladder polyp. Normal common bile duct. Surgery was consulted and she was advised admission for definitive management Past Medical History Cardiac Medical History: Denies: Coronary Artery Disease, Myocardial Infarction Pulmonary Medical History: Denies: Asthma, Bronchitis, Chronic Obstructive Pulmonary Disease (COPD), Pneumonia Neurological Medical History: Denies: Seizures Musculoskeltal Medical History: Denies: Arthritis Hematology: Denies: Anemia Past Surgical History Past Surgical History: History of left knee arthroscopy 2012; right elbow surgery 1990 Past Surgical History: Reports: Orthopedic Surgery - L knee, Other - Right knee arthroscopy last week, Dr. Marquez Social History Smoking Status: Unknown if Ever Smoked Hx Recreational Drug Use: No Hx Prescription Drug Abuse: No Family History Family History: Reviewed & Not Pertinent Parental Family History Reviewed: Yes Children Family History Reviewed: Yes Sibling(s) Family History Reviewed.: Yes Medication/Allergy Home Medications: Famotidine [Pepcid 40 mg Tablet] 40 mg PO DAILY #30 tablet 08/26/17 Allergies/Adverse Reactions: No Known Allergies Allergy (Verified 08/28/17 13:49) Review of Systems Eyes: ABSENT: visual disturbances Ears: ABSENT: hearing changes Cardiovascular: ABSENT: chest pain, dyspnea on exertion, edema, orthropnea, palpitations Respiratory: ABSENT: cough, hemoptysis Gastrointestinal: PRESENT: as per HPI, other - Patient denies ever having had a colonoscopy; inter remittent constipation Physical Exam Vital Signs: Temp Pulse Resp BP Pulse Ox 98.9 F 86 117/80 93 09/15/17 22:37 09/15/17 22:37 09/15/17 22:37 09/15/17 22:37 General appearance: PRESENT: no acute distress Head exam: PRESENT: normocephalic Eye exam: PRESENT: EOMI Mouth exam: PRESENT: dry mucosa Neck exam: PRESENT: full ROM Respiratory exam: PRESENT: clear to auscultation bennett Cardiovascular exam: PRESENT: RRR Pulses: PRESENT: normal carotid pulses, normal radial pulses, normal femoral pulses GI/Abdominal exam: PRESENT: other - Tender right upper quadrant with guarding no peritoneal signs or rigidity no groin hernias. Umbilicus with hardware Rectal exam: PRESENT: deferred Extremities exam: PRESENT: full ROM Musculoskeletal exam: PRESENT: full ROM Neurological exam: PRESENT: alert, awake, oriented to person, oriented to place , oriented to time, oriented to situation Psychiatric exam: PRESENT: appropriate affect Skin exam: PRESENT: dry Results Impressions: Abdomen Ultrasound 09/15/17 23:14 IMPRESSION: 1. Cholelithiasis without other sonographic evidence of acute cholecystitis. 2. Nonmobile 0.3 cm echogenic structure along the gallbladder wall. This could represent an adherent stone or sludge ball. This could also represent a tiny cholesterol polyp. No follow-up required. 3. Hepatic steatosis. Assessment & Plan - Diagnosis (1) Symptomatic cholelithiasis Is this a current diagnosis for this admission?: Yes Plan: Third episode of postprandial symptomatic cholelithiasis; now with elevated white count likely acute component. Conditions: 1. Admit, IV fluids, n.p.o., plan for interval laparoscopic, possible open cholecystectomy later today. 2. Point the patient she will be admitted to the surgical service; Dr. Cervantes reporting to duty on September 16 who will provide the service. (2) Tear meniscus knee Qualifiers: Laterality: right Is this a current diagnosis for this admission?: Yes Plan: 1 week status post repair, Dr. Sevilla, [facility], no complications - Time Time Spent: 50 to 70 Minutes Critical Time spent with patient: 15-24 minutes Medications reviewed and adjusted accordingly: Yes Anticipated discharge: Home - Inpatient Certification Based on my medical assessment, after consideration of the patient's comorbidities, presenting symptoms, or acuity I expect that the services needed warrant INPATIENT care.: Yes I certify that my determination is in accordance with my understanding of Medicare's requirements for reasonable and necessary INPATIENT services [42 CFR 412.3e].: Yes Medical Necessity: Need For IV Fluids, Need for Pain Control, Need for IV Antibiotics, Need for Surgery
[2017-09-16] MEDS ORDERED: CEFAZOLIN 1 GM/D5W RTU 1 GM/50 ML RTUPB IV ONE (04:45)
--- NOTE | 2017-09-16 09:12 | PDOC PROGRESS REPORT ---
Subjective Progress Note for:: 09/16/17 Reason For Visit: ACUTE CHOLECYSTITIS CHOLELITHIASIS Physical Exam Vital Signs: Temp Pulse Resp BP Pulse Ox 97.8 F 55 L 16 94/52 L 98 09/16/17 07:40 09/16/17 07:40 09/16/17 07:40 09/16/17 07:40 09/16/17 07:40 Intake & Output 09/15/17 09/16/17 09/17/17 06:59 06:59 06:59 Weight 84.5 kg Results Impressions: Abdomen Ultrasound 09/15/17 23:14 IMPRESSION: 1. Cholelithiasis without other sonographic evidence of acute cholecystitis. 2. Nonmobile 0.3 cm echogenic structure along the gallbladder wall. This could represent an adherent stone or sludge ball. This could also represent a tiny cholesterol polyp. No follow-up required. 3. Hepatic steatosis. Assessment & Plan - Diagnosis (1) Cholecystitis Is this a current diagnosis for this admission?: Yes - Plan Summary Plan Summary: This is a 32-year-old female with acute cholecystitis. I have recommended cholecystectomy as treatment. The patient has agreed to this. Risks/Benefits discussed, informed consent obtained, and all questions answered.
[2017-09-16] MEDS ORDERED: NEOSTIGMINE METHYLSULFATE 10 MG/10 ML VIAL ONE (09:32)
[2017-09-16] MEDS ORDERED: VECURONIUM BROMIDE INJ 10 MG VIAL IV ONE (09:32)
[2017-09-16] MEDS ORDERED: SUCCINYLCHOLINE CHLORIDE INJ 200 MG/10 ML VIAL ONE (09:32)
[2017-09-16] MEDS ORDERED: GLYCOPYRROLATE INJ 0.4 MG/2 ML VIAL ONE (09:32)
[2017-09-16] MEDS: KETOROLAC TROMETHAMINE INJ/PF 30 MG/1 ML SDV IV PRN ×2 (09:45→16:32)
[2017-09-16] MEDS ORDERED: CEFAZOLIN 1 GM/D5W RTU 1 GM/50 ML RTUPB IV SCH ×2 (10:00→14:00)
[2017-09-16] MEDS ORDERED: BUPIVACAINE HCL 0.25 % INJ/PF (2.5 MG/1 ML) 30 ML VIAL ONE (12:50)
[2017-09-16] MEDS ORDERED: LIDOCAINE 2% INJ-PF (20 MG/ML) 10 ML AMPUL ONE (13:03)
[2017-09-16] MEDS ORDERED: ACETAMINOPHEN 100 ML IV ONE ×2 (13:04)
[2017-09-16] MEDS ORDERED: FENTANYL CITRATE INJ/PF 100 MCG/2 ML AMPUL ONE ×2 (13:04→15:28)
[2017-09-16] MEDS ORDERED: PROPOFOL INJ 200 MG/20 ML VIAL IV ONE (13:04)
[2017-09-16] MEDS ORDERED: DEXAMETHASONE SOD PHOSPHATE INJ 4 MG/1 ML VIAL ONE (13:04)
[2017-09-16] MEDS ORDERED: ONDANSETRON HCL INJ/PF 4 MG/2 ML SDV ONE (13:04)
[2017-09-16] MEDS ORDERED: MIDAZOLAM 2 MG/2 ML INJ ONE (13:06)
[2017-09-16] MEDS ORDERED: MORPHINE SULFATE 10 MG/ML INJ IV PRN (14:35)
[2017-09-16] MEDS ORDERED: MEPERIDINE HCL/PF INJ 25 MG/1 ML DISP.SYRIN IV PRN (14:35)
[2017-09-16] MEDS ORDERED: PROMETHAZINE HCL INJ 25 MG/1 ML VIAL IV PRN ×2 (14:35)
[2017-09-16] MEDS ORDERED: FENTANYL CITRATE INJ/PF 100 MCG/2 ML AMPUL IV PRN ×3 (14:35)
[2017-09-16] MEDS ORDERED: DIPHENHYDRAMINE HCL 50 MG/ML VIAL IV PRN (14:35)
--- NOTE | 2017-09-16 15:20 | Operative Report ---
Nonrecallable Operative Report DATE OF SURGERY: 09/16/17 PREOPERATIVE DIAGNOSIS: Acute cholecystitis POSTOPERATIVE DIAGNOSIS: Acute on chronic cholecystitis OPERATION: Laparoscopic cholecystectomy SURGEON: BRISA MACHUCA ANESTHESIA: GA TISSUE REMOVED OR ALTERED: Gallbladder COMPLICATIONS: None apparent ESTIMATED BLOOD LOSS: Minimal PROCEDURE: Drains: None. Procedure in detail: After informed consent was obtained, the patient was laid in the supine position in the operating room. The area of the abdomen was prepped and draped in a normal sterile fashion. A 15 blade scalpel was used to create an infraumbilical incision. This was deepened using blunt dissection. The cicatrix was identified, grasped with a Maia clamp, and retracted upwards. The linea alba fascia was incised sharply. The abdomen was entered sharply. The balloon trocar was inserted, and pneumoperitoneum was achieved. Next a 5 mm subxiphoid port was placed under direct laparoscopic visualization. 2 more 5 mm trochars were placed in the right upper quadrant in similar fashion. Atraumatic graspers were placed through the 5 mm ports. The gallbladder was retracted cephalad and laterally. Dissection was begun in the triangle of Calot. There was a dense inflammatory reaction around the infundibulum. Dissection was slow, however it was fruitful. The cystic duct and cystic artery were fully visualized and skeletonized, seeing the liver through the triangle. Once the critical view of safety was obtained, the cystic duct and cystic artery were clipped and cut with laparoscopic instruments. The gallbladder was removed from the liver using Bovie electrocautery. The gallbladder was then grasped with a large clamp and pulled out through the umbilicus. The camera was reinserted, and the hilum was inspected. The hilum was found to be free of any leakage of blood or bile. Once this was confirmed, the 5 mm trochars were removed under direct laparoscopic visualization. The infraumbilical trocar was also removed, and pneumoperitoneum was relieved. The infraumbilical fascia was closed using 0 Vicryl suture in [id number] fashion. The overlying skin was closed using 4-0 Vicryl Rapide suture in subcuticular fashion. All sponge, instrument, and needle counts were correct 2. Condition: Stable.
[2017-09-16] MEDS ORDERED: HYDROCODONE/ACETAMINOPHEN 10-325 MG TABLET PO PRN (16:24)
--- NOTE | 2017-09-16 18:33 | PDOC DISCHARGE SUMMARY ---
General - Admit/Disc Date/PCP Admission Date/Primary Care Provider: 09/16/17 03:56 MARIKA VEE MD Discharge Date: 09/16/17 - Discharge Diagnosis (1) Cholecystitis Is this a current diagnosis for this admission?: Yes - Additional Information Resuscitation Status: Full Code Discharge Diet: As Tolerated Discharge Activity: No Lifting Over 10 Pounds Prescriptions: Hydrocodone/Acetaminophen [[place] 10-325 mg Tablet] 1 tab PO Q4HP PRN #40 tablet PRN Reason: Home Medications: Famotidine [Pepcid 40 mg Tablet] 40 mg PO DAILY #30 tablet 08/26/17 Hydrocodone/Acetaminophen [[place] 10-325 mg Tablet] 1 tab PO Q4HP PRN #40 tablet 09/16/17 Ondansetron [Zofran Odt 4 mg Tablet] 4 mg PO Q6HP PRN 09/16/17 Oxycodone HCl 5 mg PO Q6HP PRN 09/16/17 History of Present Illness History of Present Illness: JAVIER KOCH is a 32 year old female admitted with persistent right upper quadrant abdominal pain and gallstones. She was diagnosed with acute cholecystitis and started on intravenous antibiotics. Hospital Course Hospital Course: The patient was taken to the operating room on 09/16/2017 for laparoscopic cholecystectomy. She was found to have acute on chronic cholecystitis. Patient tolerated the procedure well. Later in the day of 09/16/2017 the patient was ambulating, tolerating a diet, and it was felt that she had reached maximal hospital benefit and was fit for discharge. Physical Exam Vital Signs: Temp Pulse Resp BP Pulse Ox 97.7 F 78 16 115/65 97 09/16/17 17:30 09/16/17 17:30 09/16/17 17:30 09/16/17 17:30 09/16/17 17:30 Intake & Output 09/15/17 09/16/17 09/17/17 06:59 06:59 06:59 Intake Total 1200 Output Total 2 Balance 1198 Weight 84.5 kg Results Impressions: Abdomen Ultrasound 09/15/17 23:14 IMPRESSION: 1. Cholelithiasis without other sonographic evidence of acute cholecystitis. 2. Nonmobile 0.3 cm echogenic structure along the gallbladder wall. This could represent an adherent stone or sludge ball. This could also represent a tiny cholesterol polyp. No follow-up required. 3. Hepatic steatosis. Qualifiers - * PATIENT BEING DISCHARGED WITH ANY OF THE FOLLOWING DIAGNOSIS: No Plan Time Spent: Less than 30 Minutes
[2017-09-16 18:43] VITALS: BP 111/67
== END 2017-09-16 20:30 | disposition home or self-care (01) ==
LOC: ER 21:59 → INTOOBSV 09-16 03:56 → EH 09-16 03:56 → 2N 09-16 04:56
PROVIDERS: ATTEND Surgery
PROC: 0FT44ZZ Resection of Gallbladder, Percutaneous Endoscopic Approach (ICD-10-PCS; principal; 2017-09-16 14:30)
DX: K81.1 Chronic cholecystitis (principal); S83.206D Unspecified tear of unspecified meniscus, current injury, right knee, subsequent encounter; X58.XXXD Exposure to other specified factors, subsequent encounter; Z98.890 Other specified postprocedural states
CPT/HCPCS: 99285; 96374; 96375; 36415; 83690; 85025; 81025; 80053; 88304 ×2; 76705; 47562; G0378 ×2; J2250; J0690; J1100; J3010; J3490 ×2; J1885; J1170; J0330; J2405; J7030; J2704; J0131; 790

== ENCOUNTER → 2018-03-24 | Outpatient (CLI) | payer BC | LOC: OD 16:25 | PROVIDERS: ATTEND Family Medicine | DX: E28.2 Polycystic ovarian syndrome (principal); N92.6 Irregular menstruation, unspecified; Z83.49 Family history of other endocrine, nutritional and metabolic diseases | CPT/HCPCS: 36415; 83001; 83002; 84403; 84443; 84702; 84703 ==

== ENCOUNTER → 2018-03-26 | Outpatient (CLI) | payer BC ==
--- NOTE | 2018-03-26 17:30 | RADIOLOGY REPORT (SQ) ---
EXAM DESCRIPTION: U/S NON-OB PELVIS W/O DOP COMPLETED DATE/TIME: 03/26/2018 5:08 pm REASON FOR STUDY: E28.2 POLYCYSTIC OVARIAN SYNDROME E28.2 POLYCYSTIC OVARIAN SYNDROME COMPARISON: Abdominal ultrasound 09/16/2017 TECHNIQUE: Dynamic and static grayscale images acquired of the pelvis via transabdominal approach an d recorded on PACS. Additional selected color Doppler and spectral images recorded. LIMITATIONS: None. FINDINGS: UTERUS: Contour normal. No mass. Uterus is 6.5 x 4 x 3.7 cm size. No fibroids. ENDOMETRIAL STRIPE: No focal or generalized thickening. No masses. Endometrial stripe 7 to 8 mm in t hickness. CERVIX: No nabothian cysts. RIGHT OVARY AND DOPPLER: Normal size, 4.6 x 4 x 3 cm size with a 16 mm follicle. No worrisome masses . Normal arterial vascular flow without evidence for torsion. LEFT OVARY AND DOPPLER: Normal size, 3 x 2.2 x 1.7 cm. No worrisome masses. Normal arterial vascular flow without evidence for torsion. FREE FLUID: None noted. OTHER: No other significant finding. IMPRESSION: NORMAL PELVIC ULTRASOUND BY TRANSABDOMINAL TECHNIQUE. TECHNICAL DOCUMENTATION: JOB ID: [id number] [employer]- All Rights Reserved Rev-09/05 Reading location - IP/workstation name: [email or web address]
== END ==
LOC: RAD 17:16
PROVIDERS: ATTEND Family Medicine
DX: E28.2 Polycystic ovarian syndrome (principal)
CPT/HCPCS: 76856